=== PATIENT | female | born 1965 | race Caucasian/White ===

== ENCOUNTER → 2019-07-05 | Outpatient (CLI) | payer BC ==
[2019-07-05 09:54] VITALS: BP 168/90; PULSE 86; RESP 18; TEMP 98; BMI 29.9
--- NOTE | 2019-07-05 10:54 | P.HPOB ---
History of Present Illness H&P Date: 07/05/19 Chief Complaint: The patient is here for her routine gynecologic exam and ma mmogram. This is a 54-year-old with an LMP of 2001. The patient is status post vaginal hysterectomy for uterine fibroids and abnormal bleeding. Hysterectomy was benign. She is here to establish with this office. Her last pelvic exam was around the time of her hysterectomy in 2001. She is without gynecologic complaints. She believes she went to the menopausal change about 3 years ago and she had hot flashes. The hot flashes have improved somewhat since then. Review of Systems The patient's weight has been stable over the last year. She denies respir atory, cardiac, or G.I. problems. Past Medical History Past Medical History: Skin Disorder Additional Past Medical History / Comment(s): Psoriasis. PAST POMOLOGIST HISTORY: She has no history of STDs. She did have cryotherapy done on her cervix once in the period. She denies any Pap smear problems. History of Any Multi-Drug Resistant Organisms: None Reported Past Surgical History: Hysterectomy Additional Past Surgical History / Comment(s): Vaginal hysterectomy 2001. Cryotherapy of the cervix. 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 - Past Family History Father Family Medical History: Myocardial Infarction ([place]) Mother Family Medical History: No Reported History Medications and Allergies Home Medications Medication Instructions Recorded Confirmed Type Ustekinumab [Stelara] 45 mg SQ WEEKLY 07/05/19 07/05/19 History Allergies Allergy/AdvReac Type Severity Reaction Status Date / Time Sulfa (Sulfonamide Allergy Dyspnea Unverified 07/05/19 09:54 Antibiotics) Exam Vital Signs Temp Pulse Resp BP Pulse Ox 07/05/19 09:49 98.0 F 86 18 168/90 97 Intake and Output 07/04/19 07/05/19 07/05/19 22:59 06:59 14:59 Other: Weight 76.657 kg Height 5 feet 3 inches, weight 169 pounds, BMI 29.9. This is a well-developed well-nourished white female who is alert and oriented times 3 in no acute distress. HEENT: Within normal limits. NECK: Supple without mass or thyromegaly. CHEST AND LUNGS: Clear to auscultation. HEART: Regular rate and rhythm. BREASTS: Are without mass or discharge. AXILLARY EXAM: Negative for adenopathy. BACK: Negative for CVA tenderness. ABDOMEN: Soft, nontender, without palpable masses. PELVIC EXAM: External genitalia appears normal with minimal atrophy. Vagina appears normal minimal atrophy. There is no evidence of prolapse. Bimanual examination is negative for mass or tenderness. RECTAL EXAM: Rectovaginal exam is negative for mass or tenderness and is negative for occult blood. EXTREMITIES: Nontender. IMPRESSION: 1. 54-year-old menopausal female status post vaginal hysterectomy for benign reasons with normal gynecologic exam. 2. Elevated blood pressure. PLAN: 1. Pap smears have been discontinued. 2. Self breast awareness was discussed with the patient. 3. Screening mammogram will be done today. 4. Osteoporosis prevention was discussed. I have stressed the importance of adequate calcium, vitamin D and regular exercise. Recommended amounts of calcium and vitamin D were also discussed. 5. I have recommended that she check her blood pressure on her own on a regular basis. She states she has a blood pressure cuff for this. She will follow up with Dr. Noel for blood pressure elevations. 6. I have recommended screening colonoscopy based on her age. She states she will speak with Dr. Noel about this. 7. She was advised to return in one year for her annual well woman exam.
--- NOTE | 2019-07-06 14:57 | MM ---
Reason for exam: screening (asymptomatic). History: Patient is postmenopausal. Physical Findings: A clinical breast exam by your physician is recommended on an annual basis and results should be correlated with mammographic findings. MG Screening Mammo w CAD Bilateral CC and MLO view(s) were taken. No prior studies available for comparison. The breast tissue is heterogeneously dense. This may lower the sensitivity of mammography. There are scattered bilateral calcifications. Right lateral posterior depth calcifications disperse on MLO view. No suspicious abnormality. ASSESSMENT: Benign, BI-RAD 2 RECOMMENDATION: Routine screening mammogram of both breasts in 1 year.
== END | disposition home or self-care (01) ==
LOC: WWCWWP 09:40
PROVIDERS: ATTEND Obstetrics & Gynecology
DX: Z12.31 Encounter for screening mammogram for malignant neoplasm of breast (principal)
CPT/HCPCS: 77067

== ENCOUNTER → 2020-07-11 | Outpatient (CLI) | payer BC | END | disposition home or self-care (01) | LOC: LABWHC1 10:23 | PROVIDERS: ATTEND Emergency Medicine | DX: Z20.828 Contact with and (suspected) exposure to other viral communicable diseases (principal) | CPT/HCPCS: U0003; C9803 ==

== ENCOUNTER → 2021-11-21 | Outpatient (CLI) | payer OTHER ==
--- NOTE | 2021-11-21 16:08 | XR ---
EXAMINATION TYPE: XR wrist complete RT DATE OF EXAM: 11/21/2021 CLINICAL HISTORY: Fall injury with pain TECHNIQUE: Frontal, lateral and oblique images of the right wrist are obtained. 4 view scaphoid vie w is performed. COMPARISON: None FINDINGS: There is no acute fracture/dislocation evident in the right wrist. Mild to moderate narrow ing and spurring at base of first metacarpal. Overlying soft tissue is unremarkable. IMPRESSION: There is no acute fracture or dislocation in the right wrist.
== END | disposition home or self-care (01) ==
LOC: RADXRMAIN 15:16
PROVIDERS: ATTEND Emergency Medicine
DX: S63.501A Unspecified sprain of right wrist, initial encounter (principal); W19.XXXA Unspecified fall, initial encounter

== ENCOUNTER → 2022-12-11 | Outpatient (CLI) | payer OTHER ==
--- NOTE | 2022-12-11 10:17 | XR ---
EXAMINATION TYPE: XR chest 2V DATE OF EXAM: 12/11/2022 COMPARISON: NONE HISTORY: Shortness of breath TECHNIQUE: Frontal and lateral views of the chest are obtained. FINDINGS: Scattered senescent parenchymal changes noted. Hyperinflation compatible with COPD. No evidence for infiltrate. No evidence for atelectasis. Heart size is stable. Mediastinal structures are stable and grossly unremarkable. No evidence for hilar prominence. Degenerative changes dorsal spine. IMPRESSION: 1. No evidence for acute pulmonary disease.
[2022-12-11 15:35] LABS: Basophils # (A) 0.03 X 10*3/uL (0.00-0.10); Basophils % (A) 0.5 %; Eosinophils # (A) 0.09 X 10*3/uL (0.04-0.35); Eosinophils % (A) 1.4 %; HCT 47.5 % (37.2-46.3); HGB 16.1 g/dL (12.0-15.0); Immature Grans, Automated 0.5 %; Lymphocytes # (A) 2.61 X 10*3/uL (0.90-5.00); Lymphocytes % (A) 40.8 %; MCH 33.3 pg (27.0-32.0); MCHC 33.9 g/dL (32.0-37.0); MCV 98.1 fL (80.0-97.0); Mean Platelet Volume 11.3 fL (9.5-12.2); Monocytes # (A) 0.36 X 10*3/uL (0.20-1.00); Monocytes % (A) 5.6 %; NRBC Per 100 WBC 0 /100 WBCS (0.0-0.0); Neutrophils # (A) 3.28 X 10*3/uL (1.80-7.70); Neutrophils % (A) 51.2 %; Platelet Count 191 X 10*3/uL (140-440); RBC 4.84 X 10*6/uL (4.10-5.20); RDW 12.6 % (11.5-14.5)
[2022-12-11 15:43] LABS: African American GFR (CKD) 107.7 (60.0-200.0); Albumin 4.6 g/dL (3.8-4.9); Albumin/Globulin Ratio 1.68 (1.60-3.17); Anion Gap 12.1 mmol/L (10.00-18.00); BUN/Creat Ratio 14.25 Ratio (12.00-20.00); Blood Urea Nitrogen 10.2 mg/dL (9.0-27.0); Calcium 9.5 mg/dL (8.7-10.3); Carbon Dioxide 25.1 mmol/L (20.0-27.5); Globulin 2.7 g/dL (1.6-3.3); Non-African American GFR(CKD) 92.9 (60.0-200.0); Potassium 4.6 mmol/L (3.5-5.5); Total Bilirubin 0.3 mg/dL (0.30-1.20); Total Protein 7.3 g/dL (6.2-8.2)
== END | disposition home or self-care (01) ==
LOC: LABWHC1 09:47
PROVIDERS: ATTEND Physician Assistant
DX: R06.00 Dyspnea, unspecified (principal)
CPT/HCPCS: 36415; 71046; 80053; 83880; 85025; 85379

== ENCOUNTER → 2023-09-22 | Outpatient (CLI) | payer OTHER ==
--- NOTE | 2023-09-22 15:54 | P.SLEEP ---
History of Present Illness H&P Date: 09/22/23 This is a 58-year-old female patient was seeing me regarding the possibility of obstructive sleep apnea. The patient is a healthy 58-year-old with history of psoriasis and psoriatic arthritis and the patient also has chronic anxiety maintained on citalopram. She describes loud snoring and she has been told on few occasions that she quits breathing at night by her . Infectious currently symptoms sleeping in a separate bedroom from her who has no medical problems. She states in different body positions and more so on her side. She has wakes herself up in the past with choking and gasping for air. She has a dry mouth and she seems to be a mouth breather. 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 On weekends, she goes to bed around 11 PM and wakes up 7 AM in the morning. It takes a few minutes to fall asleep. No major hypersomnia or sleepiness during the day despite reported symptoms. The patient is fully functional at work. She does not fall asleep while driving. She does not fall asleep while watching television. Her current Appleton score is at 8. She herself feels that she does not have any sleep apnea. No sleep paralysis. Normal sensations. No cataplexy. No other major comorbidities for now Past medical history is positive for psoriasis and psoriatic arthritis and chronic anxiety Past surgical history is positive for hysterectomy Drug allergies are not known Outpatient medication includes citalopram 20 mg p.o. daily and Tremfya 1 injection every 8 weeks Allergies are to sulfa and erythromycin Social history the patient is a half a pack a day smoker. No history of alcoholism. No history of IV drugs. Plan Family history the patient has her father with obstructive sleep apnea. Her father also had cardiac disease and both parents have anxiety. Psoriasis (in the family Review of system 14 point review of system was done and the positive findings are most of the history of present illness. No reported insomnia. No choking at nighttime. No nocturia. No grinding of the teeth. No panic attacks although she has chronic anxiety. No heartburn. No chest pain or shortness of breath. No cardiac palpitations. No history of any motor vehicle accidents because of feeling drowsy or sleepy. She has chronic arthritis related to psoriasis. No head trauma. No substance abuse. Otherwise, the review of system is negative. BP is 178/82 with a pulse of 79 respirations of 16 and a temperature 98.1. Pulse ox 95% on room air. Height is 5 3 and weight is 179 with a body mass index of 31.5. Upper scores of 8. 16.5 inches General appearance the patient is calm comfortable no acute distress. Head exam was generally normal. There was no scleral icterus or corneal arcus. Mucous membranes were moist. Neck is supple and the patient has significant chronic posterior pharynx with a Mallampati class IV and the patient also has micrognathia. Lungs were clear to auscultation and percussion, and with normal diaphragmatic excursion. No wheezes or rales were noted. Cardiac exam revealed the PMI to be normally situated and sized. The rhythm was regular and no extrasystoles were noted during several minutes of auscultation. The first and second heart sounds were normal and physiologic splitting of the second heart sound was noted. There were no murmurs, rubs, clicks, or gallops. Abdominal exam revealed normal bowel sounds. The abdomen was soft, non-tender, and without masses, organomegaly, or appreciable enlargement of the abdominal aorta. Examination of the extremities revealed easily palpable radial, femoral and pedal pulses. There was no cyanosis, clubbing or edema. Examination of the skin revealed no evidence of significant rashes, suspicious appearing nevi or other concerning lesions. Neurologically, the patient is awake and alert and the patient does not have any focal neurological deficit. Cranial nerves are essentially intact. Assessment Loud snoring and apneas without any major hypersomnia or sleepiness. Appleton score is at 8. Patient is a Mallampati class IV with micrographia. Psoriasis Psoriatic arthritis Chronic anxiety maintained on Celexa Plan Encourage weight loss. The patient already has adequate sleep hygiene measures. Will continue maintaining a regular sleep schedule. The patient will undergo a home sleep study to evaluate the presence and severity of sleep apnea and decide if further treatment is needed. In general, she is not very much enthusiastic about going on CPAP therapy and she wants to go with conservative measures if she is found to have mild disease. Will make final recommendations based on the results of the home sleep study. Will continue to follow. Past Medical History Past Medical History: Skin Disorder Additional Past Medical History / Comment(s): Psoriasis. PAST DRY BOSS HISTORY: She has no history of STDs. She did have cryotherapy done on her cervix once in the period. She denies any Pap smear problems. History of Any Multi-Drug Resistant Organisms: None Reported Past Surgical History: Hysterectomy Additional Past Surgical History / Comment(s): Vaginal hysterectomy 2001. Cryotherapy of the cervix. Past Psychological History: No Psychological Hx Reported Past Alcohol Use History: Occasional (About 2 bottles of wine per week.) Past Drug Use History: None Reported - Past Family History Father Family Medical History: Myocardial Infarction ([place]) Mother Family Medical History: No Reported History Medications and Allergies Home Medications Medication Instructions Recorded Confirmed Type Ustekinumab [Stelara] 45 mg SQ WEEKLY 07/05/19 07/05/19 History Allergies Allergy/AdvReac Type Severity Reaction Status Date / Time Sulfa (Sulfonamide Allergy Dyspnea Unverified 07/05/19 09:54 Antibiotics) Sleep Note - Sleep Note Sleep Note: Temperature: Pulse Rate: Respiratory Rate: Blood Pressure: SpO2: Height: Weight: BMI: Neck Circumference:
== END ==
LOC: 3 N SLEEP 13:59
PROVIDERS: ATTEND Internal Medicine Critical Care Medicine
DX: G47.30 Sleep apnea, unspecified (principal); R06.83 Snoring; G47.10 Hypersomnia, unspecified; L40.50 Arthropathic psoriasis, unspecified; F41.9 Anxiety disorder, unspecified; F17.210 Nicotine dependence, cigarettes, uncomplicated; Z88.2 Allergy status to sulfonamides; Z87.2 Personal history of diseases of the skin and subcutaneous tissue
CPT/HCPCS: 99211

== ENCOUNTER → 2023-10-05 | Outpatient (CLI) | payer OTHER ==
--- NOTE | 2023-10-08 22:00 | P.PCN ---
Date of Procedure: 10/05/23 Description of Procedure: Home sleep study report Date of services 10/05/2023 Pertinent history 58-year-old female patient referred to me for evaluation of sleep apnea. The patient was seen in consultation and there was a high clinical suspicion for obstructive sleep apnea. The patient has loud snoring, and she has been noted to quit breathing by family members. She occasionally wakes up choking and gasping for air. She has Mallampati class IV with micrognathia. Her past medical history is positive for psoriatic arthritis along with chronic anxiety. Pertinent physical findings The patient's height is 5 feet and 3 inches, weight 179 pounds and body mass index is 31.5 Technical description The [employer] apnea neck system was used to complete his home sleep study. This is a type III sleep study. The total study duration was 8 hours and 29 minutes. The study was started at 9:11 PM and the study ended at 5:41 AM. There was more than 8 hours of flow monitoring and oxygen saturation monitoring and based on that, this is considered to be an adequate study Results The respiratory analysis showed a total of 373 obstructive apneas and 304 obstructive hypopneas. This is consistent with severe obstructive sleep apnea and the patient's AHI was calculated to be at 81.6 Oxygenation analysis The patient had a total of 506 oxygen saturation episodes where the pulse ox dropped by more than 4%. The baseline pulse ox while awake was 93%, average pulse ox during sleep was 92% and the lowest pulse ox was 79%. This patient spent approximately 27 minutes of sleep time below pulse ox of 89% Cardiac summary The average heart rate was 72 with a minimum heart rate of 51 and the maximum heart rate was 130 Assessment Severe symptomatic obstructive sleep apnea with an AHI of 81.6 Nocturnal oxygen desaturation with a minimum pulse ox of 79% secondary to obstructive sleep apnea Loud snoring Chronic hypersomnia Colona score of 8 History of psoriasis and psoriatic arthritis Plan This is a case of severe symptomatic obstructive sleep apnea. The patient will benefit from CPAP therapy. The results were discussed with the patient and the patient will be asked to come into the sleep center to undergo CPAP titration regarding severe symptomatic obstructive sleep apnea. Encourage weight loss Optimize sleep hygiene measures Maintain regular sleep schedule Will continue to follow
== END ==
LOC: 3 N SLEEP 10:46
PROVIDERS: ATTEND Internal Medicine Critical Care Medicine
DX: G47.33 Obstructive sleep apnea (adult) (pediatric) (principal); G47.10 Hypersomnia, unspecified; L40.50 Arthropathic psoriasis, unspecified; G47.36 Sleep related hypoventilation in conditions classified elsewhere; F17.200 Nicotine dependence, unspecified, uncomplicated; Z88.2 Allergy status to sulfonamides

== ENCOUNTER 2023-10-12 19:37 | Outpatient (CLI) | payer OTHER ==
--- NOTE | 2023-10-13 14:31 | P.PCN ---
Date of Procedure: 10/13/23 Operative Findings: CPAP titration study Date of services 10/12/2023 Pertinent history This is a case of severe symptomatic obstructive sleep apnea with an AHI of 81.6. The patient also had nocturnal oxygen desaturation with a minimum pulse ox of 79% related to obstructive sleep apnea. The patient has chronic hypersomnia and the patient suffers from psoriasis and psoriatic arthritis. The patient is coming in to undergo a CPAP titration. The patient has loud snoring, choking and gasping for air at nighttime in addition to sleep fragmentation Pertinent physical findings Height is 5 feet 3 inches, weight is 179 pounds and the patient's body mass index is 31.5 Technical description The patient was studied using a standard complex polysomnography protocol that included recording of the 2 EKG, Central, occipital and frontal EEG, right and left outer canthus EOG, submental EMG, right and left anterior tibialis EMG, respiratory airflow by thermocouple and or pressure/flow transducer, respiratory efforts by abdominal and thoracic PVDF belts, oxygen saturation by cable oximetry. Position by observation synchronized the PSG. Stepwise CPAP titration was done to eliminate obstructive respiratory events. Equipment used: [employer]. Sleep architecture The total time in bed was 443.0 minutes. Total sleep time was 357.5 minutes. Sleep efficiency was calculated to be at 80.7%. Relates to sleep onset was 32.5 minutes. Related to REM sleep was 68.5 minutes. The sleep architecture was catheterized by 12.3% stage I, 51.9% stage II, 18.2% stage III and XVII 0.6% REM sleep. The wake after sleep onset time was 48 minutes. The total arousal index was 25.2. Sleep continuity summary The patient had a total of 150 arousals with an index of 25.2. The respiratory arousal index was 2 Periodic movement events The patient had a total of 117 periodic limb movements with an index of 19.6. The periodic limb movements with arousals were 15 with an index of 2.5 Cardiac analysis The average heart rate was 70 minimum heart rate of 64 and a maximum heart rate was 77 CPAP titration summary The patient was started on CPAP therapy initially at the pressure of 5 cm of water and pressure was gradually increased maintenance of 1 cm bridge and maximum pressure of 12 cm of water. Note that the patient continued to have some obstructive hypopneas while on CPAP therapy and due to difficulties in tolerability, the patient was switched to a BiPAP. Titration was continued on BiPAP with pressures of 14/10 and the maximum pressure she was 16 over 12 cm of water. Note that at the target pressure of 16 over 12 cm of water, the patient's AHI was down to 8.5 without any significant desaturations Oxygenation analysis revealed that the patient oxygenation improved with CPAP therapy and BiPAP therapy without any significant desaturations Assessment Severe symptomatic KEMI with an AHI of 21.6. The patient underwent successful titration. Chronic hypersomnia sleepiness second obstructive sleep apnea Sleep fragmentation related to obstructive sleep apnea History of psoriasis and psoriatic arthritis Plan Will initiate BiPAP therapy at a pressure of 16 over 12 cm of water with C-Flex of 3. We are going to offer the patient an AirFit F30 I small size mask with a small headgear. The patient will initiate BiPAP therapy and the patient was seen back in office in 30 to 90 days to assess clinical response and compliancy. Anticipate improvement in sleep quality while being on BiPAP therapy will make further adjustments based on the patient's overall clinical response.
== END 2023-10-13 05:20 | disposition home or self-care (01) ==
LOC: 3 N SLEEP 19:37
PROVIDERS: ATTEND Internal Medicine Critical Care Medicine
DX: G47.33 Obstructive sleep apnea (adult) (pediatric) (principal); G47.10 Hypersomnia, unspecified; G47.8 Other sleep disorders; L40.50 Arthropathic psoriasis, unspecified; F17.200 Nicotine dependence, unspecified, uncomplicated; Z87.2 Personal history of diseases of the skin and subcutaneous tissue; Z88.2 Allergy status to sulfonamides
CPT/HCPCS: 95811

== ENCOUNTER → 2023-11-09 | Outpatient (CLI) | payer OTHER ==
[2023-11-09 11:03] LABS: HCT 48.2 % (37.2-46.3); HGB 16.6 g/dL (12.0-15.0); MCH 34.2 pg (27.0-32.0); MCHC 34.4 g/dL (32.0-37.0); MCV 99.4 FL (80.0-97.0); NRBC Per 100 WBC 0 X 10*3/uL (0.00-0.01); Platelet Count 214 X 10*3/uL (140-440); RBC 4.85 X 10*6/uL (4.10-5.20); RDW 12.4 % (11.5-14.5); WBC 7.12 X 10*3/uL (4.50-10.00)
[2023-11-09 11:16] LABS: ALT 25 U/L (8-44); AST 18 U/L (13-35); Albumin 4.5 g/dL (3.8-4.9); Albumin/Globulin Ratio 1.67 Ratio (1.60-3.17); Alkaline Phosphatase 90 U/L (41-126); Blood Urea Nitrogen 13.5 mg/dL (9.0-27.0); Calcium 9.4 mg/dL (8.7-10.3); Carbon Dioxide 23.8 mmol/L (21.6-31.8); Chloride 102 mmol/L (96-109); Chol/HDL Ratio 6.54 Ratio; Globulin 2.7 g/dL (1.6-3.3); Glucose 103 mg/dL (70-110); Potassium 4.5 mmol/L (3.5-5.5); Sodium 140 mmol/L (135-145); Total Bilirubin 0.4 mg/dL (0.3-1.2); Total Protein 7.2 g/dL (6.2-8.2)
--- NOTE | 2023-11-10 14:52 | MM ---
Reason for Exam: Screening (asymptomatic). Last mammogram was performed 1 year(s) and 1 month(s) ago. Patient History: Menarche at age 11. First Full-Term at age 20. Hysterectomy at age 37. Postmenopausal. Hormonal Contraceptives, from age 17 until age 24. Risk Values: Radha 5 year model risk: 1.2%. NCI Lifetime model risk: 6.7%. Prior Study Comparison: 07/05/2019 Bilateral Screening Mammogram, [facility]. 10/28/2022 Bilateral MG screening mammo w CAD, [facility]. Tissue Density: The breasts are heterogeneously dense, which may obscure small masses. Findings: Analyzed By CAD. There is no suspicious group of microcalcifications or new suspicious mass. Benign-appearing calcifications bilaterally. Overall Assessment: Benign, BI-RAD 2 Management: Screening Mammogram of both breasts in [address] [facility] will attempt to contact patient to return for supplemental views and ultrasound if indicated. Patient should continue monthly self-breast exams. A clinical breast exam by your physician is recommended on an annual basis. This exam should not preclude additional follow-up of suspicious palpable abnormalities. Note on Radha scores and lifetime risk: 1. A Radha score greater than 3% is considered moderate risk. If this is the case, consider specialist referral to assess eligibility for a risk reducing agent. 2. If overall lifetime risk for the development of breast cancer is 20% or higher, the patient may qualify for future screening with alternating mammogram and breast MRI. Electronically signed and approved by: Jaret Caballero DO
== END | disposition home or self-care (01) ==
LOC: RADMAMWWP 07:05
PROVIDERS: ATTEND Family Medicine
DX: Z00.01 Encounter for general adult medical examination with abnormal findings (principal); Z12.31 Encounter for screening mammogram for malignant neoplasm of breast; Z78.0 Asymptomatic menopausal state
CPT/HCPCS: 36415; 77063; 77067; 80053; 80061; 85027

== ENCOUNTER → 2024-11-09 | Outpatient (CLI) | payer BC ==
--- NOTE | 2024-11-09 09:54 | MM ---
Reason for Exam: Screening (asymptomatic). Last screening mammogram was performed 12 month(s) ago. Patient History: Menarche at age 11. First Full-Term at age 20. Hysterectomy at age 37. Postmenopausal. Hormonal Contraceptives, from age 17 until age 24. Risk Values: Radha 5 year model risk: 1.3%. NCI Lifetime model risk: 6.6%. Prior Study Comparison: 07/05/2019 Bilateral Screening Mammogram, [facility]. 10/28/2022 Bilateral MG screening mammo w CAD, [facility]. 11/09/2023 Bilateral MG 3D screening mammo w/cad, [facility]. Tissue Density: The breasts are heterogeneously dense, which may obscure small masses. Findings: Analyzed By CAD. There is no suspicious group of microcalcifications or new suspicious mass in either breast. Overall Assessment: Benign, BI-RAD 2 Management: Screening Mammogram of both breasts in 1 year. . Patient should continue monthly self-breast exams. A clinical breast exam by your physician is recommended on an annual basis. This exam should not preclude additional follow-up of suspicious palpable abnormalities. Note on Radha scores and lifetime risk: 1. A Radha score greater than 3% is considered moderate risk. If this is the case, consider specialist referral to assess eligibility for a risk reducing agent. 2. If overall lifetime risk for the development of breast cancer is 20% or higher, the patient may qualify for future screening with alternating mammogram and breast MRI. [facility], , 11/09/2024 9:51 AM. Electronically signed and approved by: Giorgio Calix M.D. Radiologis
== END | disposition home or self-care (01) ==
LOC: RADMAMWWP 06:42
PROVIDERS: ATTEND Family Medicine
DX: Z12.31 Encounter for screening mammogram for malignant neoplasm of breast (principal); R92.333 Mammographic heterogeneous density, bilateral breasts; Z78.0 Asymptomatic menopausal state; Z92.0 Personal history of contraception
CPT/HCPCS: 77063; 77067